=== PATIENT | female | born 1935 | race Caucasian/White ===

== ENCOUNTER 2023-03-04 11:07 | Day surgery (SDC) | payer MEDICARE ==
[~2023-03-04] VITALS: Ht 157.5 cm; Wt 66.0 kg
[2023-03-04] MEDS ORDERED: VOLTAREN GEL 1%1 TU TP (11:51)
[2023-03-04] MEDS ORDERED: LOTENSIN 1010 MG/TAB PO (11:51)
[2023-03-04] MEDS ORDERED: CYMBALTA 30MG30 MG PO (11:54)
[2023-03-04] MEDS ORDERED: COLACE 100100 MG/CAP PO (11:54)
[2023-03-04] MEDS ORDERED: LASIX 20MG TABL20 MG PO (11:55)
[2023-03-04] MEDS ORDERED: PRAVACHOL 40MG40 MG PO (11:55)
[2023-03-04] MEDS ORDERED: LYRICA 50MG CAP50 MG PO (11:55)
[2023-03-04] MEDS ORDERED: ZYRTEC 10MG10 MG PO (11:56)
[2023-03-04] MEDS ORDERED: ULTRAM 50MG TAB50 MG PO (11:56)
--- NOTE | 2023-03-04 11:57 | NUR ---
VANESSA Galvez in to speak with pt. EKG shows sinus with first degree block.
[2023-03-04] MEDS ORDERED: NATURAL MAGNES200 MG PO (12:29)
[2023-03-04] MEDS ORDERED: CALCIUM 600MG+D1 TAB PO (12:29)
--- NOTE | 2023-03-04 12:30 | NUR ---
Pt exhibited signs of significant discomfort while transferring from wheelchair into bed with c/o left hip and rt shoulder pain. She stated she had not taken her usual pain meds this morning d/t scheduled procedure. AUGUSTO Fowler orders tramadol, which pt takes PRN. Pt is laying in position of comfort with pillows positioned for comfort.
[2023-03-04] MEDS ORDERED: PACERONE400 MG PO (12:32)
[2023-03-04] MEDS ORDERED: ELIQUIS 2.5 PO (12:33)
[2023-03-04 13:20] VITALS: BP 146/77; PULSE 84; TEMP 98.5
--- NOTE | 2023-03-04 13:34 | NUR ---
Cardioversion/SABRA procedures were cancelled. Pt was allowed to rest in bed until pain was better controlled by tramadol. DC instructions reviewed with pt and friend Lucy, both express understanding. Pt is assisted up to wheelchair, able to transfer with far less difficulty and discomfort compared to arrival. She states pain in hip is significantly improved. Pt is assisted to dress and then out to friend's car by wheelchair with belongings.
== END 2023-03-04 13:35 | disposition home or self-care (01) ==
LOC: COL.CAR 11:07
DX: I48.0 Paroxysmal atrial fibrillation (principal); Z53.8 Procedure and treatment not carried out for other reasons; M25.552 Pain in left hip; M25.511 Pain in right shoulder